=== PATIENT | female | born 2000 | race Hispanic/Latino ===

== ENCOUNTER 2019-10-16 18:39 | Inpatient (IN) | payer OTHER ==
[2019-10-16 19:48] VITALS: BMI 34.0
[2019-10-16] MEDS ORDERED: Lidocaine 1% (PF) 30 ML VIAL SC PRN (20:33)
[2019-10-16] MEDS ORDERED: Ibuprofen 800 MG TAB PO PRN (20:33)
[2019-10-16] MEDS ORDERED: hydrALAZINE 20 MG/ML VIAL SLOW IVP PRN (20:33)
[2019-10-16] MEDS ORDERED: Carboprost 250 MCG/ML AMP IM PRN (20:33)
[2019-10-16] MEDS ORDERED: Diphenoxylate HCl/Atropine Tablet PO PRN ×2 (20:33)
[2019-10-16] MEDS ORDERED: Misoprostol 200 MCG TAB PR PRN (20:33)
[2019-10-16] MEDS ORDERED: HYDROcodone/Acetaminophen 5/325 mg Tablet PO PRN ×2 (20:33)
[2019-10-16] MEDS ORDERED: Zolpidem Tartrate 5 MG TAB PO PRN (20:33)
[2019-10-16] MEDS ORDERED: Butorphanol Tartrate 1 MG/ML VIAL SLOW IVP PRN (20:33)
[2019-10-16] MEDS ORDERED: Ondansetron PF 4 MG/2 ML Vial IVP PRN (20:33)
[2019-10-16] MEDS ORDERED: Methylergonovine 0.2 MG/ML VIAL IM PRN (20:33)
[2019-10-16] MEDS ORDERED: Acetaminophen 500 MG TAB PO PRN (20:33)
[2019-10-16] MEDS ORDERED: Promethazine HCl 25 MG/ML VIAL IM PRN (20:33)
[2019-10-16] MEDS ORDERED: NS w/ Oxytocin 10 units 500 ML IV SCH ×2 (20:45)
[2019-10-16] MEDS ORDERED: Lactated Ringer's 1,000 ML IV SCH (20:45)
[2019-10-16] MEDS ORDERED: FLU VACC QS2019-20(6MOS UP)/PF 60 MCG/0.5 ML SYRINGE IM ONE (21:00)
[2019-10-16] MEDS: Misoprostol 100 MCG TAB VAG SCH (21:00)
[2019-10-16 21:17] LABS: Hemoglobin 12.3 g/dL (12.0-16.0); Mean Corpuscular Volume 91.4 fL (78.0-98.0); Mean Platelet Volume 9.8 fL (7.4-10.4); Platelet Count 152 thou/uL (130-400); RBC Distribution Width 11.9 % (11.5-14.5); Red Blood Cell (RBC) Count 3.86 mill/uL (4.20-5.40); White Blood Cell (WBC) Count 7.8 thou/uL (4.8-10.8)
[2019-10-16 21:52] LABS: Syphilis Antibody Nonreactive (Nonreactive); Syphilis Antibody Index 0.05 S/CO (<1.00 Non-Reactive)
[2019-10-16 23:09] LABS: HBSAg Index 0.27 S/CO (0-0.99); Hep B Surf Ag Non-Reactive S/CO (NonReactive)
[2019-10-17] MEDS: Misoprostol 100 MCG TAB VAG SCH (00:59)
[2019-10-17] MEDS: NS / Oxytocin 40 units/1000ml 1,000 ML IV PRN ×2 (06:32→08:02)
[2019-10-17] MEDS ORDERED: Bisacodyl 10 MG SUPP PR PRN (12:13)
[2019-10-17] MEDS ORDERED: HYDROcodone/Acetaminophen 5/325 mg Tablet PO PRN ×2 (12:13)
[2019-10-17] MEDS ORDERED: Methylergonovine 0.2 MG/ML VIAL IM PRN (12:13)
[2019-10-17] MEDS ORDERED: Varicella virus, LIVE 0.5 ML VIAL SC ONE (12:13)
[2019-10-17] MEDS ORDERED: Preparation H Ointment 28 GM TUBE PR PRN (12:13)
[2019-10-17] MEDS ORDERED: NS / Oxytocin 40 units/1000ml 1,000 ML IV SCH (12:13)
[2019-10-17] MEDS ORDERED: Measles/Mumps/Rubella 10 MCG/0.5 ML VIAL SC ONE (12:13)
[2019-10-17] MEDS ORDERED: hydrALAZINE 20 MG/ML VIAL SLOW IVP PRN (12:13)
[2019-10-17] MEDS ORDERED: diphenhydrAMINE 25 MG CAP PO PRN (12:13)
[2019-10-17] MEDS ORDERED: Ondansetron PF 4 MG/2 ML Vial IVP PRN (12:13)
[2019-10-17] MEDS ORDERED: Benzocaine-Menthol 82.5 ML CAN TOP PRN (12:13)
[2019-10-17] MEDS ORDERED: Adacel (T-DAP) 0.5 ML SYRINGE IM ONE (12:13)
[2019-10-17] MEDS ORDERED: Promethazine HCl 25 MG/ML VIAL IM PRN (12:13)
[2019-10-17] MEDS ORDERED: Zolpidem Tartrate 5 MG TAB PO PRN (12:13)
[2019-10-17] MEDS ORDERED: Milk Of Magnesia 30 ML UDCUP PO PRN (12:13)
[2019-10-17] MEDS ORDERED: Misoprostol 200 MCG TAB VAG PRN (12:13)
[2019-10-17] MEDS ORDERED: Lanolin Ointment 7 GM TUBE TOP PRN (12:13)
[2019-10-17] MEDS: Ibuprofen 800 MG TAB PO SCH ×2 (14:49→22:26)
[2019-10-17] MEDS: Ferrous Sulfate 325 MG TAB PO SCH (17:07)
[2019-10-17] MEDS: Docusate Calcium (SURFAK) 240 MG CAP PO SCH (22:26)
[2019-10-18 05:31] LABS: Hemoglobin 10.7 g/dL (12.0-16.0); Mean Corpuscular HGB CONC 34.8 g/dL (32.0-36.0); Mean Corpuscular Hemoglobin 32.2 pg (27.0-31.0); Mean Corpuscular Volume 92.3 fL (78.0-98.0); Mean Platelet Volume 9.6 fL (7.4-10.4); Platelet Count 135 thou/uL (130-400); RBC Distribution Width 12.1 % (11.5-14.5); Red Blood Cell (RBC) Count 3.33 mill/uL (4.20-5.40); White Blood Cell (WBC) Count 10.3 thou/uL (4.8-10.8)
[2019-10-18] MEDS: Ibuprofen 800 MG TAB PO SCH ×3 (06:03→21:50)
[2019-10-18] MEDS: Ferrous Sulfate 325 MG TAB PO SCH ×2 (07:20→15:40)
[2019-10-18] MEDS: Misoprostol 100 MCG TAB VAG SCH (07:23)
[2019-10-18] MEDS: Docusate Calcium (SURFAK) 240 MG CAP PO SCH ×2 (09:38→21:50)
[2019-10-18] MEDS: Prenatal Vitamin 1 TAB PO SCH (09:41)
[2019-10-18] MEDS ORDERED: FLU VACC QS2019-20(6MOS UP)/PF 60 MCG/0.5 ML SYRINGE IM ONE (15:15)
--- NOTE | 2019-10-18 21:28 | PDOC.PP ---
Post Progress Note Post Day #: 1 PO intake tolerated: yes Flatus: yes Ambulation: yes Vital Signs (12 hours) Temp Pulse Resp BP Pulse Ox 10/18/19 20:25 98.4 F 75 16 114/58 L 99 10/18/19 20:00 100 Weight Weight 180 lb - Physical Examination General: NAD Cardiovascular: no m/r/g, RRR Respiratory: clear to auscultation bilaterally, non-labored breathing Abdominal: + bowel sounds, lochia, no distention, appropriately TTP Extremities: negative homans (B) Neurological: no gross focal deficits Psychiatric: A&Ox3, normal affect (DC tomorrow) Result Diagrams: 10/18/19 05:19 Additional Labs: Post Labs Blood Type O POSITIVE 10/16/19 21:57 Hep Bs Antigen Non-Reactive S/CO (NonReactive) 10/16/19 20:57
--- NOTE | 2019-10-19 02:21 | DN ---
DATE OF PROCEDURE: 10/17/2019 TIME OF SERVICE: 0628 hours, Central Standard Time. PREOPERATIVE DIAGNOSIS: Intrauterine at 38 weeks and 1 day with a diagnosis of oligohydramnios and term medical induction of labor. POSTOPERATIVE DIAGNOSIS: Intrauterine at 38 weeks and 1 day with a diagnosis of oligohydramnios and term medical induction of labor. PROCEDURES PERFORMED: Spontaneous vaginal delivery over intact perineum without epidural anesthesia. FINDINGS: Normal male infant, weighing 2520 g or 5 pounds 9 ounces with Apgars of 9 and 9. QUANTITATIVE BLOOD LOSS: 150 mL. COMPLICATIONS: None. PROCEDURE IN DETAIL: The patient presented to [facility] where she was admitted to the labor and delivery service. The patient underwent a normal and uneventful labor with normal cervical dilatation until she was found to be completely dilated. She was then allowed to push and was able to bring the baby down and delivered the baby in a vertex presentation without difficulties. Once the head delivered in occiput anterior position, the shoulders followed spontaneously along with the rest of the baby's body. Once out the baby's mouth and nose were bulb suctioned. The cord was clamped and cut and baby was handed to waiting attendants. Cord blood was collected. Gentle fundal massage was performed and the placenta delivered intact without problems. Hemostasis was assured. Quantitative blood loss was calculated. Inspection of the cervix, vaginal vault, and perineum did not reveal any lacerations needing suturing. Once again, hemostasis was within normal limits and the patient was allowed to recover in the labor and delivery room. Baby went to nursery. Job ID: [id number]
[2019-10-19] MEDS: Ibuprofen 800 MG TAB PO SCH (04:16)
[2019-10-19 08:33] VITALS: BP 120/82; TEMP 98.3
[2019-10-19] MEDS: Ferrous Sulfate 325 MG TAB PO SCH (09:31)
[2019-10-19] MEDS: Docusate Calcium (SURFAK) 240 MG CAP PO SCH (09:31)
[2019-10-19] MEDS: Prenatal Vitamin 1 TAB PO SCH (09:31)
== END 2019-10-19 12:35 | disposition home or self-care (01) | DRG 807 ==
LOC: L&D 18:39 → 3SW 10-17 12:22
PROVIDERS: ADMIT Obstetrics & Gynecology; ATTEND Obstetrics & Gynecology
PROC: 10E0XZZ Delivery of Products of Conception, External Approach (ICD-10-PCS; principal; 2019-10-17)
DX: O41.03X0 Oligohydramnios, third trimester, not applicable or unspecified (principal); Z37.0 Single live birth; Z3A.38 38 weeks gestation of pregnancy
CPT/HCPCS: 36415; 85027; 86780; 86850; 86900; 86901; 87340; 90471; 90686; 90715; 90732; G0008; G0009

== ENCOUNTER 2020-03-18 16:22 | Emergency (ER) | payer OTHER ==
[2020-03-19 11:22] LABS: SARS-CoV-2 MS2 Positive; SARS-CoV-2 N Gene Negative; SARS-CoV-2 S Gene Negative; SARS-CoV-2 orf1ab Negative
== END 2020-03-18 18:39 | disposition home or self-care (01) ==
LOC: ERS 16:22
DX: B34.9 Viral infection, unspecified (principal); J45.909 Unspecified asthma, uncomplicated; Z20.828 Contact with and (suspected) exposure to other viral communicable diseases
CPT/HCPCS: 87081; 87430; 87635; 87804; 99283; U0003

== ENCOUNTER 2020-10-25 02:43 | Emergency (ER) | payer OTHER, SELFPAY ==
[2020-10-25 03:32] LABS: Bilirubin Negative (Negative); Blood, Urine Negative (Negative); Clarity Clear (Clear); Glucose, Urine (Dipstick) Normal (Negative); Ketone, Urine Negative (Negative); Leukocyte Negative Leu/uL (Negative); Nitrite Negative (Negative); Protein, Urine (Dipstick) Negative (Neg-Trace); Specific Gravity, Urine 1.024 (1.002-1.036); Urobilinogen Normal mg/dL (Less than 2); pH, Urine 6.5 (5.0-9.0)
[2020-10-25 03:35] LABS: Pregnancy Test - Urine (BHCG) Negative (Negative)
[2020-10-25 03:36] LABS: Pregu Control Background? CLEAR/WHITE (CLR/WHITE); Pregu Control Bar Appear? YES (CONTROL BAR); Specific Gravity 1.022 (1.002-1.036)
== END 2020-10-25 04:05 | disposition home or self-care (01) ==
LOC: ERS 02:43
DX: R10.30 Lower abdominal pain, unspecified (principal); J45.909 Unspecified asthma, uncomplicated
CPT/HCPCS: 81003; 81025; 99284

== ENCOUNTER 2020-12-31 18:27 | Emergency (ER) | payer SELFPAY ==
[2020-12-31] MEDS ORDERED: Lidocaine 4% Cream 5 GM TUBE w/ Tegaderm ONE (19:57)
== END 2020-12-31 21:13 | disposition home or self-care (01) ==
LOC: ERS 18:27
DX: L03.011 Cellulitis of right finger (principal); J45.909 Unspecified asthma, uncomplicated
CPT/HCPCS: 10060

== ENCOUNTER 2021-01-07 22:15 | Emergency (ER) | payer SELFPAY ==
[2021-01-07] MEDS ORDERED: Lidocaine 1% (PF) 30 ML VIAL ONE (22:30)
[2021-01-07] MEDS ORDERED: Ketorolac Tromethamine 30 MG/ML VIAL ONE (22:30)
[2021-01-07] MEDS ORDERED: Boostrix 0.5 ML (Tdap) VIAL ONE (23:17)
== END 2021-01-07 23:41 | disposition home or self-care (01) ==
LOC: ERS 22:15
DX: L02.512 Cutaneous abscess of left hand (principal); L03.012 Cellulitis of left finger; J45.909 Unspecified asthma, uncomplicated; Z23 Encounter for immunization
CPT/HCPCS: 26010; 90471; 90715; 96372; J1885; J2001

== ENCOUNTER 2021-04-07 12:33 | Emergency (ER) | payer SELFPAY ==
[2021-04-07] MEDS ORDERED: Acetaminophen 500 MG TAB ONE (13:25)
[2021-04-07] MEDS ORDERED: Ondansetron ODT 4 MG TAB ONE (13:25)
[2021-04-07 19:15] LABS: SARS-CoV-2 PCR by NAA Not Detected (NotDetected)
== END 2021-04-07 13:51 | disposition home or self-care (01) ==
LOC: ERS 12:33
DX: R05 Cough (principal); M79.10 Myalgia, unspecified site; R09.81 Nasal congestion; Z20.822 Contact with and (suspected) exposure to COVID-19; J45.909 Unspecified asthma, uncomplicated
CPT/HCPCS: 99283; Q0162; U0003; U0005

== ENCOUNTER 2021-04-25 00:57 | Emergency (ER) | payer SELFPAY ==
[2021-04-25 01:19] LABS: #Lymphocytes 2.2 thou/uL (1.20-3.40); #Monocytes 0.5 thou/uL (0.11-0.59); #Neutrophils 3.1 thou/uL (1.40-6.50); %Basophils 0.5 % (0.0-1.0); %Eosinophils 0.3 % (0.0-10.0); %Monocytes 9.2 % (0.0-10.0); %Neutrophils 52.9 % (42.0-75.0); Hemoglobin 13.9 g/dL (12.0-16.0); Mean Corpuscular HGB CONC 35.5 g/dL (32.0-36.0); Mean Corpuscular Hemoglobin 33.2 pg (27.0-31.0); Mean Corpuscular Volume 93.5 fL (78.0-98.0); Mean Platelet Volume 8.1 fL (7.4-10.4); Platelet Count 250 thou/uL (130-400); RBC Distribution Width 11.5 % (11.5-14.5); Red Blood Cell (RBC) Count 4.19 mill/uL (4.20-5.40); White Blood Cell (WBC) Count 5.8 thou/uL (4.8-10.8)
[2021-04-25 01:36] LABS: BHCG - Serum Negative (NEGATIVE); Pregs Control Background? CLEAR/WHITE (CLR/WHITE); Pregs Control Bar Appear? YES (CONTROL BAR)
[2021-04-25 02:04] LABS: Albumin 4.7 g/dL (3.5-5.0)
[2021-04-25 02:05] LABS: Chloride 103 mmol/L (98-107); Potassium 3.4 mmol/L (3.5-5.1); Sodium 138 mmol/L (136-145)
[2021-04-25 02:06] LABS: Calcium 9.5 mg/dL (7.8-10.44)
[2021-04-25 02:07] LABS: Globulin 3.2 g/dL (2.4-3.5); Glucose 102 mg/dL (70-105); Protein, Total 7.9 g/dL (6.0-8.3)
[2021-04-25 02:08] LABS: Anion Gap 14 mmol/L (10-20); Bilirubin, Total 1.1 mg/dL (0.2-1.2); Carbon Dioxide 24 mmol/L (22-29)
[2021-04-25 02:09] LABS: Alkaline Phosphatase 56 U/L (40-110)
[2021-04-25 02:10] LABS: Calc. Creatinine Clearance 0 mL/min (70-130)
[2021-04-25 02:11] LABS: BUN (Urea Nitrogen) 12 mg/dL (7.0-18.7)
[2021-04-25 02:12] LABS: ALT (SGPT) 12 U/L (8-55); AST (SGOT) 13 U/L (5-34)
[2021-04-25 02:13] LABS: Lipase 8 U/L (8-78)
[2021-04-25 02:29] LABS: Bacteria/HPF None Seen HPF (None Seen); Bilirubin Negative (Negative); Blood, Urine Negative (Negative); Clarity Turbid (Clear); Glucose, Urine (Dipstick) Normal (Negative); Ketone, Urine Trace mg/dL (Negative); Leukocyte Negative Leu/uL (Negative); Mucous/LPF 4+ LPF (<2+); Nitrite Negative (Negative); Pregnancy Test - Urine (BHCG) Negative (Negative); Pregu Control Background? CLEAR/WHITE (CLR/WHITE); Pregu Control Bar Appear? YES (CONTROL BAR); Protein, Urine (Dipstick) 70 mg/dL (Neg-Trace)
== END 2021-04-25 05:27 | disposition home or self-care (01) ==
LOC: ERS 00:57
DX: R10.9 Unspecified abdominal pain (principal); J45.909 Unspecified asthma, uncomplicated
CPT/HCPCS: 36415; 80053; 81003; 81015; 81025; 83690; 84703; 85025; 87077; 87086; 99284

== ENCOUNTER 2021-09-24 00:05 | Emergency (ER) | payer OTHER, SELFPAY ==
[2021-09-24] MEDS ORDERED: Ondansetron ODT 4 MG TAB ONE (01:03)
[2021-09-24] MEDS ORDERED: Ondansetron PF 4 MG/2 ML Vial ONE (01:03)
[2021-09-24] MEDS ORDERED: Acetaminophen 500 MG TAB ONE (01:23)
== END 2021-09-24 03:21 | disposition home or self-care (01) ==
LOC: ERS 00:05
DX: B34.9 Viral infection, unspecified (principal); J45.909 Unspecified asthma, uncomplicated
CPT/HCPCS: 99283; J2405; Q0162

== ENCOUNTER 2022-02-20 15:10 | Emergency (ER) | payer SELFPAY ==
[2022-02-20 18:09] LABS: Bacteria/HPF 4+ HPF (None Seen); Bilirubin Negative (Negative); Blood, Urine 1+ (Negative); Clarity Turbid (Clear); Glucose, Urine (Dipstick) Normal (Negative); Ketone, Urine Negative (Negative); Leukocyte 500 Leu/uL (Negative); Nitrite Negative (Negative); Pregnancy Test - Urine (BHCG) Negative (Negative); Pregu Control Background? CLEAR/WHITE (CLR/WHITE); Pregu Control Bar Appear? YES (CONTROL BAR); Protein, Urine (Dipstick) 30 mg/dL (Neg-Trace); Specific Gravity 1.025 (1.002-1.036); Specific Gravity, Urine 1.025 (1.002-1.036); Squamous Epithelial 21-50 HPF (0-3); Urobilinogen 6 mg/dL (Less than 2); WBC/HPF Greater than 50 HPF (0-3)
[2022-02-21 16:11] LABS: SARS-CoV-2 PCR by NAA Not Detected (NotDetected)
== END 2022-02-20 18:55 | disposition home or self-care (01) ==
LOC: ERS 15:10
DX: J06.9 Acute upper respiratory infection, unspecified (principal); N39.0 Urinary tract infection, site not specified; Z20.822 Contact with and (suspected) exposure to COVID-19; J45.909 Unspecified asthma, uncomplicated
CPT/HCPCS: 81003; 81015; 81025; 87081; 87430; 99283; U0003; U0005

== ENCOUNTER 2022-11-11 23:21 | Emergency (ER) | payer SELFPAY | END 2022-11-12 00:20 | disposition home or self-care (01) | LOC: ERS 23:21 | DX: R11.0 Nausea (principal) | CPT/HCPCS: 99283 ==